=== PATIENT | female | born 1965 | race Caucasian/White ===

== ENCOUNTER 2016-11-27 10:21 | Emergency (ER) | payer OTHER ==
[~2016-11-27 10:21] MED LIST: ALBUTEROL S3 ML/VIAL NEB; ALDACTONE25 MG PO; ASPIRIN EC81 MG PO; COLACE100 MG PO; COREG6.25 MG PO; DIABETA5 MG PO; EFFEXOR37.5 MG PO; GLUCOPHAGE1000 MG PO; LASIX20 MG PO; PRINIVIL10 MG PO; SOOTHE LUBRICA1 EACH OU
== END 2016-11-27 14:05 | disposition home or self-care (01) ==
LOC: ER 10:21
DX: K52.9 Noninfective gastroenteritis and colitis, unspecified (principal); E11.9 Type 2 diabetes mellitus without complications; I11.0 Hypertensive heart disease with heart failure; I50.9 Heart failure, unspecified; J44.9 Chronic obstructive pulmonary disease, unspecified; Z90.710 Acquired absence of both cervix and uterus; Z79.82 Long term (current) use of aspirin; Z79.84 Long term (current) use of oral hypoglycemic drugs; Z79.899 Other long term (current) drug therapy; Z88.0 Allergy status to penicillin; Z88.5 Allergy status to narcotic agent; Z91.010 Allergy to peanuts
CPT/HCPCS: 36415; 87502; 96361; 96374; 96375; J1885